=== PATIENT | male | born 1970 | race Hispanic/Latino ===

== ENCOUNTER → 2019-12-11 | Day surgery (SDC) | payer MEDICARE ==
[~2019-12-11] MED LIST: BUPIVACAINE 0.5%/EPI 30 ML SDV INJ ONE; CEFAZOLIN SOD 1 GM/NS 50ML 50 ML IV ONE; DESFLURANE 240 ML BTL INH ONE; DEXAMETHASONE SOD PHOS INJ 4 MG/ML VIAL ONE; EPINEPHRINE HCL 1:1000 1ML 1 MG/ML AMP ONE; FENTANYL CITRATE/PF 100MCG/2 ML INJ ONE; GLYCOPYRROLATE INJ 0.2 MG/ML VIAL ONE; LIDOCAINE 2%/ EPINEPHRINE 20ML MDV ONE; LIDOCAINE HCL 2% LOCAL INJ 5 ML SDV VIAL INJ ONE; MIDAZOLAM HCL 2 MG/2 ML VIAL ONE; NEOSTIGMINE 1 MG/ML 10ML VIAL ONE; ONDANSETRON HCL INJ 2MG/ML 2ML 2 MG/ML VIAL ONE; PROPOFOL IV EMULSION 10 MG/ML 20 ML VIAL ONE; ROCURONIUM BROMIDE 10 MG/ML 5ML VIAL ONE; ROPIVACAINE 0.5% 5 MG/ML 30 ML SDV ONE; ULTRAM 50MG50 MG PO
--- OUTSIDE RECORDS SUMMARY | 2019-12-11 05:14 | XMS REPORT ---
Author Author Admin, [place] Organization [facility] Address [address] [place] [id number] Phone Allergies, Adverse Reactions, Alerts Allergy Name Reaction Description Start Date Severity Status Provider Allergies Unknown Conditions or Problems Problem Name Problem Code Onset Date Status Entry Date Provider Comment Standard Description Annotate DEPRESSIVE DISORDER, OTHER SPECIFIED Active Krystal Sanchez [facility] Atypical depressive disorder Medication List Medication Instructions Start Date Stop Date Generic Name NDC Status Provider Patient Instruction Drug Treatment Unknown - unknown Procedures Code Procedure Name Date Entry Date Standard Description CPT-02385 Psychotherapy 45 (38-52*) min - 96433 (with patient and/or family member) 15:48:52 [employer]END[employer] CPT-67792 Diagnostic evaluation (no medical) - [address]16 08:02:38 [employer] ATTENDANT
--- OUTSIDE RECORDS SUMMARY | 2019-12-11 05:14 | XMS REPORT ---
Author Author [facility] Organization [facility] Address Unknown Phone Unavailable Care Team Providers Care Outcome Analyst Name Role Phone ADRIAN STARKEY Unavailable Unavailable Payers Payer Name Policy Type Policy Number Effective Date Expiration Date Problems This patient has no known problems. Allergies, Adverse Reactions, Alerts Allergy Name Allergy Type Status Severity Reaction(s) Onset Date Inactive Date Treating Clinician Comments No Known Allergies DA Active U 2018-07-15 00:00:00 No Known Allergies DA Active U 2016-05-09 00:00:00 Medications This patient has no known medications. Results Test Description Test Time Test Comments Text Results Atomic Results Result Comments MRI SHOULDER LEFT WO 2019-11-19 09:38:00 [facility] [address] [address] Patient Name: SOTO WHITE MR #: [id number] : 1970 Age/Sex: 49/M Req #: [id number] Adm Physician: Ordered by: ADRIAN STARKEY DO Report #: [id number] Location: MRI Room/Bed: Procedure: [id number] MRI/MRI SHOULDER LEFT WO Exam Date: Exam Time: REPORT STATUS: Signed MRI of the left shoulder without contrast. History: Shoulder pain. Fall. Decreased range of motion. Pain not responding to conservative management Comparison: None Technique: Coronal PD FS, sagital PD FS, and axial PD and PD FS. Findings: Rotator cuff: Rotator cuff tendinosis with full-thickness tear involving the supraspinatus, subscapularis and anterior fibers of the infraspinatus tendons at the humeral insertion site. Retraction of the torn fibers to the level of the glenoid and mild muscle atrophy. The teres minor tendon is intact. Reactive change with bone marrow edema in the humeral head. Osseous acromion complex: Type II acromion with mild lateral downsloping. Moderate degenerative arthrosis at the acromioclavicular joint with undersurface spurring. The humeral head approaches the undersurface of the acromion. Glenohumeral joint: Degenerative type tearing of the labrum. The articular cartilage surfaces are intact. The humeral head is well-seated in the glenoid fossa. Moderate size glenohumeral joint effusion and synovitis. Biceps tendon: The long head of the biceps tendon is torn and retracted proximally along the shaft of the humerus. Other findings: Negative for muscle denervation or osseous fracture. Impression: Rotator cuff tendinosis with full-thickness tear involving the supraspinatus, subscapularis and anterior fibers of the infraspinatus tendons at the humeral insertion site. Retraction of the torn fibers to the level of the glenoid and mild muscle atrophy. The long head of the biceps tendon is torn and retracted proximally along the shaft of the humerus. Moderate degenerative arthrosis at the acromioclavicular joint with undersurface spurring. The humeral head approaches the undersurface of the acromion. 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 Homer Tellez M.D. on 11/19/2019 9:42 AM Dictated By: HOMER TELLEZ MD, MD 1 Transcribed By: ROB on 11/19/19941 COPY TO: ADRIAN STARKEY DO
[2019-12-11 12:10] VITALS: BP 147/89
--- NOTE | 2019-12-11 21:02 | NUR ---
ORTHOPEDIC OPERATIVE NOTE Date of Surgery: 12/11/2019 Preoperative diagnosis: Left Shoulder Rotator Cuff Tear, Labral Tear, and Biceps Tendon Tear Postoperative diagnosis: Left Shoulder Rotator Cuff Tear, Labral Tear, and Biceps Tendon Tear Procedure performed: Left Shoulder Arthroscopic Supraspinatus, Infraspinatus, Subscapularis Repair, and Labral Debridement, Extensive Debridement Surgeon: Sonal Kenney DO Complications: None Implants: [employer] SwivelLock 4.75 Biocomposite Screws EBL: <10 cc Indications: Due to persistent pain and limitations on activity combined with findings on exam and imaging, the patient requests surgical treatment. Nonoperative care and alternative surgical options were reviewed. We agreed that this provided the best risk/benefit profile for this patient, understanding and accepting risks of recurrent//persistent symptoms, infection, bleeding, stiffness, neurological/vascular damage, failure to improve and anesthetic complication (as reviewed by anesthesia service). Findings: 1. Labrum - Degenerative Tear 2. Cartilage - Normal 3. Biceps - Long head of biceps torn and retracted 4. Rotator Cuff - Torn Supraspinatus, Anterior edge of Infraspinatus, and Subscapularis 5. Synovium - hypertrophic and hyperemic 6. Bursa - Hypertrophic, hyperemic 7. Acromion - Type 2 Acromion 8. AC Joint - AC Joint Arthrosis Procedure: After greeting the patient in the holding area and confirming patient identity and laterality, the patient underwent satisfactory general anesthesia and preoperative antibiotics. The patient was placed in the beach chair position with the head and neck in neutral position, prominences well padded and the eyes well protected. The operative upper extremity and shoulder girdle were prepped and draped in sterile fashion. Diagnostic arthroscopy was performed through a posterior portal with probing via a portal through the rotator interval. The posterior joint was inspected with the scope through the anterior portal. The above findings were noted. The labrum was extensively debrided with an arthroscopic shaver and electrocautery to a stable border. The scope was withdrawn from the joint, and the scope was inserted into the subacromial space. Through the anterior portal and a posterolateral portal, a bursectomy was performed providing visualization of the cuff tear and marking stitch. After careful delineation of the CA ligament and the acromial spur, through the use of the dean, the acromial hook was removed and adequate decompression was confirmed through the cutting block technique. The tear and footprint were debrided and via an anterolateral portal the footprint was decorticated to improve healing. The above suture anchor was placed within the footprint and after passing the sutures through the cuff and reducing the tendons, the sutures were tied securing the tendon on the footprint. Side to side suture was placed to assist with closure of the interval. Attention was brought to the acromioclavicular joint where the inferior osteophytes were excised and planed in alignment with the acromion. Then via the anterior portal, a dean was introduced excising the close to 1 cm of the distal clavicle ensuring adequate decompression. This was confirmed via visualization of the anterior portal. Arthroscopic incisions and the axillary incision was closed were closed with monocryl, a sterile dressing applied followed by a shoulder immobilizer. The patient was awakened and transferred to the PACU in stable condition having tolerated the procedure well.
== END | disposition home or self-care (01) ==
LOC: OR 05:11
PROVIDERS: ATTEND Orthopaedic Surgery
DX: M75.122 Complete rotator cuff tear or rupture of left shoulder, not specified as traumatic (principal); S46.192A Other injury of muscle, fascia and tendon of long head of biceps, left arm, initial encounter; S43.432A Superior glenoid labrum lesion of left shoulder, initial encounter; M19.012 Primary osteoarthritis, left shoulder; R07.9 Chest pain, unspecified; R53.1 Weakness; M54.2 Cervicalgia; X58.XXXA Exposure to other specified factors, initial encounter; Z01.810 Encounter for preprocedural cardiovascular examination
CPT/HCPCS: 29824; 29827; 93005; J0171; J0690; J1100; J2001 ×2; J2250; J2405; J2704; J2710; J2795; J3010